=== PATIENT | male | born 1935 | race Caucasian/White ===

== ENCOUNTER 2018-09-30 19:25 | Inpatient (IN) ==
[2018-09-30] MEDS: Sod Chloride 0.9% Inj 1,000 ML IV.CONT SCH (21:03)
--- NOTE | 2018-09-30 21:16 | XR ---
EXAM DATE: 09/30/2018 9:11 PM EST AGE/SEX: 83 years / Male INDICATIONS: Shortness of breath and all over body pain. CLINICAL DATA: This is the patient's initial encounter. Patient reports that signs and symptoms have been present for 1 week and indicates a pain score of 10/10. MEDICAL/SURGICAL HISTORY: Myocardial infarction. Gastroesophageal reflux disease. Congestive heart failure. Bladder cancer. Renal failure. CABG. Pacemaker. COMPARISON: [facility], CT CHEST W/ CONTRAST, 12/20/2015. . FINDINGS: 2 AP views of the chest. Median sternotomy wires. AICD in place. Mildly prominent cardiac silhouette. Lungs are clear. No evidence of pleural effusion or pneumothorax. CONCLUSION: 1. Mildly prominent cardiac silhouette unchanged 2015. 2. No acute cardiopulmonary disease identified. Electronically signed by: Joseph Garduno MD Board Certified Radiologist 09/30/2018 9:15 PM EST
--- NOTE | 2018-09-30 21:32 | ED ---
HPI General Chief complaint: Medical Clearance Stated complaint: Medical Time Seen by Provider: 09/30/18 20:25 Source: patient and family Mode of arrival: wheelchair Limitations: physical limitation History of Present Illness HPI narrative: 82-year-old male complains of low back pain, constipation, generalized malaise and weakness and left leg weakness. Patient has history of prostate cancer. Patient originally was diagnosed with prostate cancer in 2002. Patient declined surgery at that time. Patient eventually was put on hormone blocking shot. Patient was subsequently put on medication. In December [address] scan of the chest for workup of chronic cough and finding consistent with multiple subcentimeter pulmonary nodules. Patient eventually had a bone scan and repeat a CT scan 2017 which were normal. Patient received radiation treatment for his prostate cancer in 2018 at [facility]. Patient reported his PSA rise from February 2018 from 2 to August 2018 at 102 and recently 114. Patient was referred to Dr. Clemente for evaluation. Patient complained the whole body pain including increasing low back pain and left leg weakness for the past week. Patient states that he has trouble walking with the left leg weakness. Patient also complained mild aching headache, persistent nausea and constipation. Patient had increasing upper and low back pain for the past week. Patient has urinary incontinence for the past year. Patient denies any fever chills. Patient was seen by Dr. Clemente again today and referred to ED for admission for further evaluation and treatment. Patient had a cardiac pacer in place. Unable to do MRI. Onset (ago): week(s) Location: back and lower extremity Radiation: non-radiation Severity: severe Quality: sharp Pain Consistency: constant Relieving factors: none Exacerbating factors: none Associated symptoms: Reports weakness Treatments prior to arrival: Reports none Related Data Home Medications Medication Instructions Recorded Confirmed alprazolam [Xanax] 0.25 mg PO BID PRN 09/30/18 09/30/18 aspirin [Aspir-81] 81 mg PO DAILY 09/30/18 09/30/18 biotin 5,000 mcg SUBLINGUAL DAILY 09/30/18 09/30/18 bisoprolol fumarate 5 mg PO DAILY 09/30/18 09/30/18 calcium carbonate [Calcium 500] 250 mg PO QID 09/30/18 09/30/18 furosemide [Lasix] 40 mg PO DAILY 09/30/18 09/30/18 hydrocodone-acetaminophen 1 tab PO Q4H 09/30/18 09/30/18 magnesium sulfate 100 mg PO DAILY 09/30/18 09/30/18 omeprazole 40 mg PO DAILY 09/30/18 09/30/18 rivaroxaban [Xarelto] 20 mg PO DAILY 09/30/18 09/30/18 simethicone 80 mg PO DAILY 09/30/18 09/30/18 spironolactone 25 mg PO DAILY 09/30/18 09/30/18 Allergies Allergy/AdvReac Type Severity Reaction Status Date / Time atorvastatin Allergy Severe Swelling Verified 09/30/18 20:12 statins Allergy Severe Swelling Uncoded 07/02/08 11:40 Review of Systems ROS: all other systems reviewed are negative FOR[facility]LY [facility] Medical History Medical History Bladder cancer (Acute) CHF (congestive heart failure) (Acute) GERD (gastroesophageal reflux disease) (Acute) Myocardial infarction acute (Acute) Renal failure (Acute) Social History Social History Substance History: No History of Abuse Second Hand Smoke Exposure: No Smoking Status: Never smoker How Often Do You Have a Drink Containing Alcohol: Never Recent Travel in [facility] within the Last 8 Weeks: No Recent Out of Country Travel within the Last 8 Weeks: No Immunization History Tetanus Immunization: Unsure Exam Narrative Exam Narrative: GENERAL: Thin and pale patient, lying in bed, no acute distress. SKIN: Focused skin assessment warm/dry. HEAD: Normocephalic. EYES: No scleral icterus. No injection or drainage. NECK: Supple, trachea midline. No JVD or lymphadenopathy. CARDIOVASCULAR: Regular rate and rhythm without murmurs, gallops, or rubs. RESPIRATORY: Breath sounds equal bilaterally. No accessory muscle use. GASTROINTESTINAL: Abdomen soft, non-tender, nondistended. MUSCULOSKELETAL: No cyanosis, or edema. BACK: Moderate tenderness in palpation lumbar area, without obvious deformity. No CVA tenderness. Neurologic exam: Patient has weakness of the left leg. Mild decrease in light touch sensation in left leg. Course Initial Documented Vital Signs Temperature 98.9 F 09/30/18 20:18 Pulse Rate 80 09/30/18 20:18 Respiratory Rate 20 09/30/18 20:18 Blood Pressure 119/58 L 09/30/18 20:18 Pulse Oximetry 95 09/30/18 20:18 Last Documented Vital Signs Temperature 98.9 F 09/30/18 20:18 Pulse Rate 80 09/30/18 20:18 Respiratory Rate 20 09/30/18 20:18 Blood Pressure 119/58 L 09/30/18 20:18 Pulse Oximetry 95 09/30/18 20:18 Medical Decision Making MDM Narrative Medical decision making narrative: 83-year-old male with history of prostate cancer now complains of back pain, weakness to left leg constipation and urinary incontinence. Normal saline solution 1 L IV bolus. Normal saline solution 125 cc an hour. Percocet 5 1 tablet p.o. now. Decadron 4 mg p.o. now. I spoke with Dr. Clemente who will be consulted for the case. Patient has cardiac pacer in place. Unable to do MRI. Medical Screen Exam Complete: Yes Emergency Medical Condition: Yes Differential Diagnosis Differential Diagnosis: Differential diagnosis including spinal cord compression , neuropathy, fracture. Lab Data Lab results reviewed: Yes I reviewed the patient's lab results. Result diagrams: 09/30/18 20:57 09/30/18 20:57 Lab Results 09/30/18 09/30/18 09/30/18 Range/Units 20:57 20:57 20:57 WBC 9.5 (4.0-11.0) th/mm3 RBC 4.24 L (4.50-5.90) mil/mm3 Hgb 12.6 L (13.0-17.0) gm/dL Hct 36.9 L (39.0-51.0) % MCV 87.0 (80.0-100.0) fL MCH 29.6 (27.0-34.0) pg MCHC 34.1 (32.0-36.0) % RDW 14.1 (11.6-17.2) % Plt Count 282 (150-450) th/mm3 MPV 10.0 (7.0-11.0) fL Neut % (Auto) 80.5 H (16.0-70.0) % Lymph % (Auto) 9.5 (9.0-44.0) % Marshall % (Auto) 9.2 H (0.0-8.0) % Eos % (Auto) 0.2 (0.0-4.0) % Baso % (Auto) 0.6 (0.0-2.0) % Neut # (Auto) 7.7 (1.8-7.7) th/mm3 Lymph # (Auto) 0.9 L (1.0-4.8) th/mm3 Marshall # (Auto) 0.9 (0.0-0.9) th/mm3 Eos # (Auto) 0.0 (0.0-0.4) th/mm3 Baso # (Auto) 0.1 (0.0-0.2) th/mm3 WBC Differential . Differential Comment Auto diff final PT 12.2 H (9.8-11.6) sec INR 1.2 Ratio APTT 31.8 H (23.4-31.7) sec Sodium (136-145) meq/L Potassium (3.5-5.1) meq/L Chloride (98-107) meq/L Carbon Dioxide (21.0-32.0) meq/L Anion Gap (5-15) meq/L BUN (7-18) mg/dL Creatinine (0.60-1.30) mg/dL Estimated GFR (>89) mL/min Random Glucose (74-106) mg/dL Calcium (8.5-10.1) mg/dL Magnesium (1.5-2.5) mg/dL Total Bilirubin (0.2-1.0) mg/dL AST (15-37) U/L ALT (12-78) U/L Alkaline Phosphatase (45-117) U/L Total Creatine Kinase (39-308) U/L CK-MB (CK-2) (0.5-3.6) ng/mL CK-MB (CK-2) % (0.0-4.0) % Total Protein (6.4-8.2) g/dL Albumin (3.4-5.0) g/dL TSH 1.150 (0.358-3.740) uIU/mL 09/30/18 Range/Units 20:57 WBC (4.0-11.0) th/mm3 RBC (4.50-5.90) mil/mm3 Hgb (13.0-17.0) gm/dL Hct (39.0-51.0) % MCV (80.0-100.0) fL MCH (27.0-34.0) pg MCHC (32.0-36.0) % RDW (11.6-17.2) % Plt Count (150-450) th/mm3 MPV (7.0-11.0) fL Neut % (Auto) (16.0-70.0) % Lymph % (Auto) (9.0-44.0) % Marshall % (Auto) (0.0-8.0) % Eos % (Auto) (0.0-4.0) % Baso % (Auto) (0.0-2.0) % Neut # (Auto) (1.8-7.7) th/mm3 Lymph # (Auto) (1.0-4.8) th/mm3 Marshall # (Auto) (0.0-0.9) th/mm3 Eos # (Auto) (0.0-0.4) th/mm3 Baso # (Auto) (0.0-0.2) th/mm3 WBC Differential Differential Comment PT (9.8-11.6) sec INR Ratio APTT (23.4-31.7) sec Sodium 125 L (136-145) meq/L Potassium 4.3 (3.5-5.1) meq/L Chloride 90 L (98-107) meq/L Carbon Dioxide 23.6 (21.0-32.0) meq/L Anion Gap 11 (5-15) meq/L BUN 16 (7-18) mg/dL Creatinine 1.00 (0.60-1.30) mg/dL Estimated GFR 71 L (>89) mL/min Random Glucose 102 (74-106) mg/dL Calcium 10.0 (8.5-10.1) mg/dL Magnesium 2.2 (1.5-2.5) mg/dL Total Bilirubin 0.8 (0.2-1.0) mg/dL AST 109 H (15-37) U/L ALT 25 (12-78) U/L Alkaline Phosphatase 548 H (45-117) U/L Total Creatine Kinase 384 H (39-308) U/L CK-MB (CK-2) Less than 1.0 (0.5-3.6) ng/mL CK-MB (CK-2) % 0.3 (0.0-4.0) % Total Protein 8.8 H (6.4-8.2) g/dL Albumin 3.4 (3.4-5.0) g/dL TSH (0.358-3.740) uIU/mL Imaging Data Attestation: I personally reviewed and interpreted this imaging study as follows : Radiologist's impression: Cervical Spine CT 09/30/18 20:41 CONCLUSION: 1. Degenerative changes are noted as above without evidence for acute fracture or listhesis. Chest X-Ray 09/30/18 20:41 CONCLUSION: 1. Mildly prominent cardiac silhouette unchanged 2016. 2. No acute cardiopulmonary disease identified. Head CT 09/30/18 20:41 CONCLUSION: 1. Atrophy and white matter disease. . Lumbar Spine CT 09/30/18 20:46 There is atherosclerotic calcification of the aorta and iliac vessels noted. There is severe disc space narrowing at L4-5 and L5-S1 with vacuum disc phenomenon, endplate sclerosis and osteophytosis. There is concavity at the superior endplate of L4 felt to represent an acute superior endplate compression fracture with a thin band of sclerosis along the anterior one half consistent with a chronic component. There is mild loss of vertebral body height. Prominent Schmorl node inferior endplate of L2 identified. There is also a Schmorl node with mild wedging of L1 which is nonacute in appearance. Vacuum disc phenomenon and moderate disc space narrowing at L1-2 noted. Patchy sclerosis is seen at T11 and T12 as well as the left iliac bone suspicious for metastatic disease. At L3-4 there is moderate to severe canal stenosis secondary to slight retropulsion of the posterior superior aspect of L4 and a diffuse disc bulge. CONCLUSION: 1. Degenerative changes as well as an acute on chronic superior endplate fracture at L4 with slight retropulsion and canal stenosis. 2. Remote L1 compression deformity. 3. Patchy sclerotic foci are noted as above and characteristic of metastatic disease. Thoracic Spine CT 09/30/18 20:46 Examination demonstrates slight nonacute wedging of T6, scattered sclerotic lesions within the spine characteristic of the patient's known metastatic disease to bone. There is a linear lucency seen along the posterior one third superior endplate of T10 with slight superior endplate concavity characteristic of an acute fracture. There is a Schmorl node at the superior endplate of T11 as well as the inferior endplate of T11. There is concavity along the superior endplate of L1 which is nonacute in appearance. There is no evidence for spinal stenosis. CONCLUSION: 1. Degenerative changes as well as a T10 superior endplate fracture with slight loss of vertebral body height at the superior endplate. 2. Metastatic disease to bone. Discharge Plan Discharge Disposition Patient Disposition: ED Admit(ED Internal Use Only) Discharge Order Discharge Orders: ED Use Only Admit Order (Routine); Ordered 09/30/18 Ordered By: Gregory Darby Discharge Details Diagnosis: Prostate cancer metastatic to bone, Intractable back pain, Myelopathy Physicians Team ED Provider: Gregory Darby Primary Care Provider: John Vargas Rxs /Orders / Referrals /Forms Prescriptions: No Action furosemide [Lasix] 40 mg Tablet 40 mg PO DAILY RF: 0 hydrocodone-acetaminophen 5-325 mg Tablet 1 tab PO Q4H RF: 0 omeprazole 40 mg Capsule,Delayed Release(Dr/Ec) 40 mg PO DAILY RF: 0 aspirin [Aspir-81] 81 mg Tablet,Delayed Release (Dr/Ec) 81 mg PO DAILY RF: 0 spironolactone 25 mg Tablet 25 mg PO DAILY RF: 0 bisoprolol fumarate 5 mg Tablet 5 mg PO DAILY RF: 0 alprazolam [Xanax] 0.25 mg Tablet 0.25 mg PO BID PRN (Reason: Anxiety) RF: 0 calcium carbonate [Calcium 500] 500 mg calcium (1,250 mg) Tablet 250 mg PO QID RF: 0 simethicone 80 mg Tablet,Chewable 80 mg PO DAILY RF: 0 rivaroxaban [Xarelto] 20 mg Tablet 20 mg PO DAILY RF: 0 magnesium sulfate 100 mg Capsule 100 mg PO DAILY RF: 0 biotin 5,000 mcg Tablet, Sublingual 5,000 mcg SUBLINGUAL DAILY RF: 0 Status ED Status: Admitted Patient
[2018-09-30 21:35] LABS: Baso # (Auto) 0.1 th/mm3 (0.0-0.2); Baso % (Auto) 0.6 % (0.0-2.0); Eos % (Auto) 0.2 % (0.0-4.0); Hematocrit 36.9 % (39.0-51.0); Hemoglobin 12.6 gm/dL (13.0-17.0); Lymph # (Auto) 0.9 th/mm3 (1.0-4.8); Lymph % (Auto) 9.5 % (9.0-44.0); Mean Corpuscular HGB Conc 34.1 % (32.0-36.0); Mean Corpuscular Hemoglobin 29.6 pg (27.0-34.0); Mono # (Auto) 0.9 th/mm3 (0.0-0.9); Mono % (Auto) 9.2 % (0.0-8.0); Neut # (Auto) 7.7 th/mm3 (1.8-7.7); Neut % (Auto) 80.5 % (16.0-70.0); Platelet Count 282 th/mm3 (150-450); Red Blood Count 4.24 mil/mm3 (4.50-5.90); Red Cell Distribution Width 14.1 % (11.6-17.2); White Blood Count 9.5 th/mm3 (4.0-11.0)
[2018-09-30 21:41] LABS: Alanine Aminotransferase 25 U/L (12-78)
[2018-09-30 21:44] LABS: Activated Partial Thrombo Time 31.8 sec (23.4-31.7); Albumin 3.4 g/dL (3.4-5.0); Alkaline Phosphatase 548 U/L (45-117); Anion Gap 11 meq/L (5-15); Aspartate Aminotransferase 109 U/L (15-37); Blood Urea Nitrogen 16 mg/dL (7-18); Carbon Dioxide 23.6 meq/L (21.0-32.0); Chloride 90 meq/L (98-107); Creatine Kinase 384 U/L (39-308); Glomerular Filtration Rate 71 mL/min (>89); Glucose,Random 102 mg/dL (74-106); INR 1.2 Ratio; Magnesium 2.2 mg/dL (1.5-2.5); Prothrombin Time 12.2 sec (9.8-11.6); Sodium 125 meq/L (136-145); Total Protein 8.8 g/dL (6.4-8.2)
[2018-09-30 21:48] LABS: Potassium 4.3 meq/L (3.5-5.1)
[2018-09-30 22:06] LABS: CKMB Percent 0.3 % (0.0-4.0)
--- NOTE | 2018-09-30 22:11 | CT ---
EXAM DATE: 09/30/2018 10:06 PM EST AGE/SEX: 83 years / Male INDICATIONS: Neck and back pain. Evaluate for spinal cord compression. CLINICAL DATA: This is the patient's initial encounter. Patient reports that signs and symptoms have been present for 1 day and indicates a pain score of 10/10. MEDICAL/SURGICAL HISTORY: Carcinoma, bone. Carcinoma, bladder. Renal failure. None. RADIATION DOSE: 56.35 CTDI (mGy) COMPARISON: No prior exams available for comparison. TECHNIQUE: CT of the head without contrast. Using automated exposure control and adjustment of the mA and/or kV according to patient size, radiation dose was kept as low as reasonably achievable to ob tain optimal diagnostic quality images. DICOM format image data is available electronically for revi ew and comparison. FINDINGS: There is diffuse atrophy and patchy hypodensity in the bilateral centrum semiovale and periventricula r white matter characteristic of chronic microvascular ischemic disease. Left occipital encephalomala jamal from remote infarct. There are no fractures. No signs of acute infarct, hemorrhage or mass is CONCLUSION: 1. Atrophy and white matter disease. . Electronically signed by: Christopher Tobin MD Board Certified Radiologist 09/30/2018 10:10 PM EST
--- NOTE | 2018-09-30 22:16 | CT ---
EXAM DATE: 09/30/2018 10:11 PM EST AGE/SEX: 83 years / Male INDICATIONS: Neck and back pain. Evaluate for spinal cord compression. CLINICAL DATA: This is the patient's initial encounter. Patient reports that signs and symptoms have been present for 1 day and indicates a pain score of 10/10. MEDICAL/SURGICAL HISTORY: Carcinoma, bone. Carcinoma, bladder. Myocardial infarction. Renal failure. None. RADIATION DOSE: 16.18 CTDI (mGy) [place] [facility] [place]AST, 09/30/2018. . TECHNIQUE: Contiguous axial images were obtained using helical multirow detector technique. The vol umetric data was post-processed with multiplanar reconstruction in oblique axial, sagittal, and coron al planes. Using automated exposure control and adjustment of the mA and/or kV according to patient s ize, radiation dose was kept as low as reasonably achievable to obtain optimal diagnostic quality [place] ges. DICOM format image data is available electronically for review and comparison. FINDINGS: Alignment is normal. No prevertebral soft tissue swelling or compression deformity. Moderate to sever e disc space narrowing at C5-6 with osteophytosis and moderate uncovertebral hypertrophy at this leve l. The odontoid process is intact. Moderate multilevel facet hypertrophic changes are seen. Cervicoth oracic junction is approximated. Moderate to severe left foraminal stenosis at C4-5 secondary to face t and uncovertebral hypertrophy. Severe bilateral foraminal narrowing at C5-6 with mild canal stenosi s at this level. CONCLUSION: 1. Degenerative changes are noted as above without evidence for acute fracture or listhesis. Electronically signed by: Christopher Tobin MD Board Certified Radiologist 09/30/2018 10:15 PM EST
--- NOTE | 2018-09-30 22:28 | CT ---
EXAM DATE: 09/30/2018 10:20 PM EST AGE/SEX: 83 years / Male INDICATIONS: Neck and back pain. Evaluate for spinal cord compression. CLINICAL DATA: This is the patient's initial encounter. Patient reports that signs and symptoms have been present for 1 day and indicates a pain score of 10/10. MEDICAL/SURGICAL HISTORY: Carcinoma, bone. Carcinoma, bladder. Myocardial infarction. Renal fail ure. None. RADIATION DOSE: 17.08 CTDI (mGy) ; Combined studies COMPARISON: C, CT CERVICAL SPINE W/O CONTRAST, 09/30/2018. . TECHNIQUE: Contiguous axial images were acquired with a multirow detector CT scanner without contras t. Multiplanar reconstructions in the sagittal and coronal plane were also performed. Using automate d exposure control and adjustment of the mA and/or kV according to patient size, radiation dose was k ept as low as reasonably achievable to obtain optimal diagnostic quality images. DICOM format image data is available electronically for review and comparison. FINDINGS: There is atherosclerotic calcification of the aorta and iliac vessels noted. There is severe disc spa ce narrowing at L4-5 and L5-S1 with vacuum disc phenomenon, endplate sclerosis and osteophytosis. The re is concavity at the superior endplate of L4 felt to represent an acute superior endplate compressi on fracture with a thin band of sclerosis along the anterior one half consistent with a chronic compo nent. There is mild loss of vertebral body height. Prominent Schmorl node inferior endplate of L2 yuni ntified. There is also a Schmorl node with mild wedging of L1 which is nonacute in appearance. Vacuum disc phenomenon and moderate disc space narrowing at L1-2 noted. Patchy sclerosis is seen at T11 and T12 as well as the left iliac bone suspicious for metastatic disease. At L3-4 there is moderate to s evere canal stenosis secondary to slight retropulsion of the posterior superior aspect of L4 and a di ffuse disc bulge. CONCLUSION: 1. Degenerative changes as well as an acute on chronic superior endplate fracture at L4 with slight retropulsion and canal stenosis. 2. Remote L1 compression deformity. 3. Patchy sclerotic foci are noted as above and characteristic of metastatic disease. Electronically signed by: Christopher Tobin MD Board Certified Radiologist 09/30/2018 10:26 PM EST
--- NOTE | 2018-09-30 22:37 | CT ---
EXAM DATE: 09/30/2018 10:22 PM EST AGE/SEX: 83 years / Male INDICATIONS: Neck and back pain. Evaluate for spinal cord compression. CLINICAL DATA: This is the patient's initial encounter. Patient reports that signs and symptoms have been present for 1 day and indicates a pain score of 10/10. MEDICAL/SURGICAL HISTORY: Carcinoma, bone. Carcinoma, bladder. Myocardial infarction. Renal fail ure. None. RADIATION DOSE: 17.08 CTDI (mGy) COMPARISON: No prior exams available for comparison. TECHNIQUE: Contiguous axial images were acquired using a multirow detector CT scanner without contra st. Multiplanar reconstruction in the sagittal and coronal planes was performed. Using automated exp osure control and adjustment of the mA and/or kV according to patient size, radiation dose was kept a s low as reasonably achievable to obtain optimal diagnostic quality images. DICOM format image data is available electronically for review and comparison. FINDINGS: Examination demonstrates slight nonacute wedging of T6, scattered sclerotic lesions within the spine characteristic of the patient's known metastatic disease to bone. There is a linear lucency seen gurjit g the posterior one third superior endplate of T10 with slight superior endplate concavity characteri stic of an acute fracture. There is a Schmorl node at the superior endplate of T11 as well as the inf erior endplate of T11. There is concavity along the superior endplate of L1 which is nonacute in appe arance. There is no evidence for spinal stenosis. CONCLUSION: 1. Degenerative changes as well as a T10 superior endplate fracture with slight loss of vertebral aleta dy height at the superior endplate. 2. Metastatic disease to bone. Electronically signed by: Christopher Tobin MD Board Certified Radiologist 09/30/2018 10:35 PM EST
[2018-09-30] MEDS ORDERED: Sod Chloride 0.9% Inj 1,000 ML IV.SIG SCH (23:30)
[2018-10-01] MEDS ORDERED: Bisacodyl 10 MG Supp RECTAL PRN (00:05)
[2018-10-01] MEDS ORDERED: Acetaminophen 325 MG Tablet PO PRN (00:05)
--- NOTE | 2018-10-01 00:20 | P.HP ---
History of Present Illness Service: [facility] Primary Care Physician: John Vargas MD History of Present Illness: 82-year-old male with a past medical history significant for metastatic prostate cancer, coronary artery disease status post CABG with pacemaker/ defibrillator, congestive heart failure, history of CVA and atrial fibrillation anticoagulated on Xarelto presents to the emergency department at the recommendation of his oncologist, Dr. Clemente, for the evaluation of left lower extremity weakness and lower back pain. The patient reports he has had lower back pain and left lower extremity weakness that has been progressively worsening since July. He reports that the pain is intractable and markedly worse with any movement. Patient currently complains of a mild aching headache with persistent nausea and constipation. He denies any chest pain or shortness of breath. No fevers/chills. Inpatient Certification: I certify that the inpatient services were ordered in accordance with Medicare regulations governing the order. This includes certification that hospital inpatient services are reasonable and necessary and in the case of services not specified as inpatient-only under 42 CFR 419.22(n), that they are appropriately provided as inpatient services in accordance to with the 2-midnight benchmark under 43 CFR 412.3(e) Review of Systems All other systems reviewed negative except as stated in HPI PMFSH - History History Provided By: Patient - Medical History Medical History: Medical History (Last Updated 10/01/18 @ 00:12 by Ericka Alex MD) Atrial fibrillation CHF (congestive heart failure) Coronary artery disease GERD (gastroesophageal reflux disease) History of CVA (cerebrovascular accident) Prostate cancer metastatic to bone - Surgical History Surgical History: Surgical History (Last Updated 10/01/18 @ 00:13 by Ericka Alex MD) History of four vessel coronary artery bypass graft History of permanent cardiac pacemaker placement Status post appendectomy Status post hemorrhoidectomy Status post hernia repair - Family History Family History: Family History (Last Updated 10/01/18 @ 00:13 by Ericka Alex MD) Other Coronary artery disease - Tobacco History Second Hand Smoke Exposure: No Smoking Status: Never smoker - Alcohol History How Often Do You Have a Drink Containing Alcohol: Never - Substance Use History Substance History: No History of Abuse - Travel History Recent Travel in the [place] Within the Last 8 Weeks: No Recent Travel Out of the Country Within the Last 8 Weeks: No - Immunization History Tetanus Immunization: Unsure Medications and Allergies Active Medications: Active Medications Sodium Chloride (Ns Inj) 1,000 mls @ 125 mls/hr IV.CONT .Q8H CHEAL Last Admin: 09/30/18 21:03 Dose: 125 mls/hr Sodium Chloride (Ns Inj) 1,000 mls @ 1,000 mls/hr IV.SIG BOLUS CHELA Stop: 10/01/18 00:29 Last Admin: 09/30/18 23:52 Dose: 1,000 mls/hr Allergies Allergy/AdvReac Type Severity Reaction Status Date / Time atorvastatin Allergy Severe Swelling Verified 09/30/18 20:12 statins Allergy Severe Swelling Uncoded 07/02/08 11:40 Home Medications Medication Instructions Recorded Confirmed Type alprazolam [Xanax] 0.25 mg PO BID PRN 09/30/18 09/30/18 History aspirin [Aspir-81] 81 mg PO DAILY 09/30/18 09/30/18 History biotin 5,000 mcg SUBLINGUAL DAILY 09/30/18 09/30/18 History bisoprolol fumarate 5 mg PO DAILY 09/30/18 09/30/18 History calcium carbonate [Calcium 500] 250 mg PO QID 09/30/18 09/30/18 History furosemide [Lasix] 40 mg PO DAILY 09/30/18 09/30/18 History hydrocodone-acetaminophen 1 tab PO Q4H 09/30/18 09/30/18 History magnesium sulfate 100 mg PO DAILY 09/30/18 09/30/18 History omeprazole 40 mg PO DAILY 09/30/18 09/30/18 History rivaroxaban [Xarelto] 20 mg PO DAILY 09/30/18 09/30/18 History simethicone 80 mg PO DAILY 09/30/18 09/30/18 History spironolactone 25 mg PO DAILY 09/30/18 09/30/18 History Exam Vital signs: Vital Signs 09/30/18 20:18 Temperature 98.9 F Pulse Rate 80 Respiratory Rate 20 Blood Pressure 119/58 L Pulse Oximetry 95 Intake & Output 09/30/18 09/30/18 10/01/18 06:59 18:59 06:59 Weight 79.379 kg Narrative: Gen.: No acute distress Head: Normocephalic. Atraumatic. EENT: Pupils equal round and reactive to light. Nose without drainage. Airway intact. Throat without injection. Cardiovascular: Regular rate and rhythm. No murmurs, rubs or gallops. Respiratory: Lungs clear to auscultation bilaterally. No wheezes or rhonchi. Abdomen: Soft, nontender, nondistended. No peritoneal signs. Musculoskeletal: No gross deformities. No edema. Patient's movement significantly limited by lower back pain. Skin: No obvious rashes or erythema. Neuro: Cranial nerves II through XII grossly intact. Foot flexion/extension 5/ 5. Unable to raise left lower extremity off the bed secondary to weakness and lower back pain. Results - Labs CBC & Chem 7: 09/30/18 20:57 09/30/18 20:57 Labs: Laboratory Results - last 24 hr 09/30/18 09/30/18 09/30/18 20:57 20:57 20:57 WBC 9.5 RBC 4.24 L Hgb 12.6 L Hct 36.9 L MCV 87.0 MCH 29.6 MCHC 34.1 RDW 14.1 Plt Count 282 MPV 10.0 Neut % (Auto) 80.5 H Lymph % (Auto) 9.5 [place] % (Auto) 9.2 H Eos % (Auto) 0.2 Baso % (Auto) 0.6 Neut # (Auto) 7.7 Lymph # (Auto) 0.9 L [place] # (Auto) 0.9 Eos # (Auto) 0.0 Baso # (Auto) 0.1 WBC Differential . Differential Comment Auto diff final PT 12.2 H INR 1.2 APTT 31.8 H Sodium Potassium Chloride Carbon Dioxide Anion Gap BUN Creatinine Estimated GFR Random Glucose Calcium Magnesium Total Bilirubin AST ALT Alkaline Phosphatase Total Creatine Kinase CK-MB (CK-2) CK-MB (CK-2) % Total Protein Albumin TSH 1.150 09/30/18 20:57 WBC RBC Hgb Hct MCV MCH MCHC RDW Plt Count MPV Neut % (Auto) Lymph % (Auto) [place] % (Auto) Eos % (Auto) Baso % (Auto) Neut # (Auto) Lymph # (Auto) [place] # (Auto) Eos # (Auto) Baso # (Auto) WBC Differential Differential Comment PT INR APTT Sodium 125 L Potassium 4.3 Chloride 90 L Carbon Dioxide 23.6 Anion Gap 11 BUN 16 Creatinine 1.00 Estimated GFR 71 L Random Glucose 102 Calcium 10.0 Magnesium 2.2 Total Bilirubin 0.8 AST 109 H ALT 25 Alkaline Phosphatase 548 H Total Creatine Kinase 384 H CK-MB (CK-2) Less than 1.0 CK-MB (CK-2) % 0.3 Total Protein 8.8 H Albumin 3.4 TSH - Imaging Impressions Cervical Spine CT 09/30/18 20:41 CONCLUSION: 1. Degenerative changes are noted as above without evidence for acute fracture or listhesis. Chest X-Ray 09/30/18 20:41 CONCLUSION: 1. Mildly prominent cardiac silhouette unchanged 2015. 2. No acute cardiopulmonary disease identified. Head CT 09/30/18 20:41 CONCLUSION: 1. Atrophy and white matter disease. . Lumbar Spine CT 09/30/18 20:46 There is atherosclerotic calcification of the aorta and iliac vessels noted. There is severe disc space narrowing at L4-5 and L5-S1 with vacuum disc phenomenon, endplate sclerosis and osteophytosis. There is concavity at the superior endplate of L4 felt to represent an acute superior endplate compression fracture with a thin band of sclerosis along the anterior one half consistent with a chronic component. There is mild loss of vertebral body height. Prominent Schmorl node inferior endplate of L2 identified. There is also a Schmorl node with mild wedging of L1 which is nonacute in appearance. Vacuum disc phenomenon and moderate disc space narrowing at L1-2 noted. Patchy sclerosis is seen at T11 and T12 as well as the left iliac bone suspicious for metastatic disease. At L3-4 there is moderate to severe canal stenosis secondary to slight retropulsion of the posterior superior aspect of L4 and a diffuse disc bulge. CONCLUSION: 1. Degenerative changes as well as an acute on chronic superior endplate fracture at L4 with slight retropulsion and canal stenosis. 2. Remote L1 compression deformity. 3. Patchy sclerotic foci are noted as above and characteristic of metastatic disease. Thoracic Spine CT 09/30/18 20:46 Examination demonstrates slight nonacute wedging of T6, scattered sclerotic lesions within the spine characteristic of the patient's known metastatic disease to bone. There is a linear lucency seen along the posterior one third superior endplate of T10 with slight superior endplate concavity characteristic of an acute fracture. There is a Schmorl node at the superior endplate of T11 as well as the inferior endplate of T11. There is concavity along the superior endplate of L1 which is nonacute in appearance. There is no evidence for spinal stenosis. CONCLUSION: 1. Degenerative changes as well as a T10 superior endplate fracture with slight loss of vertebral body height at the superior endplate. 2. Metastatic disease to bone. Caprini VTE Risk Assessment Caprini VTE Risk Assessment: Moderate/High Risk (score >= 2) Caprini Risk Assessment Model: Point Value = 1 Point Value = 2 Point Value = 3 Point Value = 5 Age 41-60 Minor surgery BMI > 25 kg/m2 Swollen legs Varicose veins or History of unexplained or recurrent spontaneous Oral contraceptives or hormone replacement Sepsis (< 1 month) Serious lung disease, including pneumonia (< 1 month) Abnormal pulmonary function Acute myocardial infarction Congestive heart failure (< 1 month) History of inflammatory bowel disease Medical patient at bed rest Age 61-74 Arthroscopic surgery Major open surgery (> 45 min) Laparoscopic surgery (> 45 min) Malignancy Confined to bed (> 72 hours) Immobilizing plaster cast Central venous access Age >= 75 History of VTE Family history of VTE Factor V Leiden Prothrombin [id number] Lupus anticoagulant Anticardiolipin antibodies Elevated serum homocysteine Heparin-induced thrombocytopenia Other congenital or acquired thrombophilia Stroke (< 1 month) Elective arthroplasty Hip, pelvis, or leg fracture Acute spinal cord injury (< 1 month) Prophylaxis Regimen: Total Risk Factor Score Risk Level Prophylaxis Regimen 0-1 Low Early ambulation 2 Moderate Order ONE of the following: *Sequential Compression Device (SCD) *Heparin 5000 units SQ BID 3-4 Higher Order ONE of the following medications: *Heparin 5000 units SQ TID *Enoxaparin/Lovenox 40 mg SQ daily (WT < 150 kg, CrCl > 30 mL/min) *Enoxaparin/Lovenox 30 mg SQ daily (WT < 150 kg, CrCl > 10-29 mL/min) *Enoxaparin/Lovenox 30 mg SQ BID (WT < 150 kg, CrCl > 30 mL/min) AND/OR *Sequential Compression Device (SCD) 5 or more Highest Order ONE of the following medications: *Heparin 5000 units SQ TID (Preferred with Epidurals) *Enoxaparin/Lovenox 40 mg SQ daily (WT < 150 kg, CrCl > 30 mL/min) *Enoxaparin/Lovenox 30 mg SQ daily (WT < 150 kg, CrCl > 10-29 mL/min) *Enoxaparin/Lovenox 30 mg SQ BID (WT < 150 kg, CrCl > 30 mL/min) AND *Sequential Compression Device (SCD) Assessment and Plan - Plan Assessment/plan: 1. Left lower extremity weakness/lower back pain Concern for metastatic disease to the spine causing cord compression CT of the thoracic spine concerning for T10 acute fracture with multiple areas of metastatic disease to the bone CT of the lumbar spine significant for fracture of L4 with slight retropulsion and canal stenosis as well as remote L1 compression deformity and metastatic disease Decadron Neurosurgery consulted, appreciate assistance Percocet for pain 2. Metastatic prostate cancer Patient's oncologist, Dr. Clemente consulted, appreciate assistance 3. Congestive heart failure Continue home Lasix, Spironolactone, Bystolic Caution with IV fluids 4. Coronary artery disease/atrial fibrillation Continue home medications including anticoagulation with Xarelto FEN Heart healthy diet Electrolytes: Monitor and replete as needed Xarelto
[2018-10-01 01:09] LABS: Bilirubin,Urine Negative (Negative); Clarity,Urine Clear (Clear); Color,Urine Yellow (Yellw/Straw); Glucose,Urine (UA) Negative (Negative); Leukocyte Esterase,Urine Negative (Negative); Mucus,Urine Few /lpf (Occasional); Nitrite,Urine Negative (Negative); Specific Gravity,Urine 1.009 (1.002-1.035); Squamous Epithelial Cell,Urine <1 /hpf (0-5)
[2018-10-01] MEDS: Sod Chloride 0.9% Inj 1,000 ML IV.CONT SCH ×3 (05:25→22:17)
[2018-10-01] MEDS: Senna/Docusate Sodium 8.6/50 MG Tablet PO SCH ×2 (08:55→20:14)
[2018-10-01] MEDS: Furosemide 40 MG Tablet PO SCH (08:56)
[2018-10-01] MEDS: Rivaroxaban 20 MG Tablet PO SCH (08:56)
[2018-10-01] MEDS ORDERED: Spironolactone 25 MG Tablet PO SCH (09:00)
[2018-10-01] MEDS ORDERED: ZEBETA 5 MG PO SCH (09:00)
[2018-10-01] MEDS ORDERED: LEUPROLIDE ACETATE 7.5 MG IM ONE (10:00)
--- NOTE | 2018-10-01 11:16 | P.DIET ---
Nutritional Evaluation Type of nutrition evaluation: initial (Weight loss screen) Nutrition consult regarding: Diet Evaluation Nutrition screening: Weight Loss > 10 lbs Objective - Diagnosis Metastatic prostate ca, intractable back pain, myelopathy - Objective Body Mass Index: 22 [place] body weight: 75 kg % IBW: 96 Body Weight Used for Calculations: Actual (71.8) Energy Needs - Lower Range (kCal/kg): 30 Energy Needs - Upper Range (kCal/kg): 35 Lower Limit kCal/kg (kCals): 2,154 Upper Limit kCal/kg (kCals): 2,513 Lower Limit Protein Factor (Grams per Kg): 1.2 Upper Limit Protein Factor (Grams per Kg): 1.5 Lower Protein Needs (Protein): 86 Upper Protein Needs (Protein): 107 Fluid Factor (ml/kg): 30 Estimated Fluid Needs (ml): 2,154 Dietitian Reviewed in Medical Record: Current diet, Curent medications, Intake & Output, Labs, Medical history Diet Order: Cardiac Objective Comments: PMH; metastatic prostate ca, CAD, CHF Labs; reviewed Medications; Lasix Assessment Assessment: 10/01/18 Weight loss screen; Pt receiving PT care when attempted to visit. Pt is at nutritional risk 2/2 dx of metastatic prostate ca and recent weight loss. Presented to ED for evaluation of left lower extremity weakness and lower back pain. Pt is currently ordered for Cardiac diet. Will monitor PO intake and assess need for supplement. Dietitian following. Recommendations: 1. Monitor PO intake
--- NOTE | 2018-10-01 13:15 | MB ---
cc: Kit Clemente MD DATE: 10/01/2018 REASON FOR CONSULTATION: 83-year-old male with rapidly progressive prostate cancer and concerns regarding possible spinal cord compression, requiring urgent evaluation and treatment. PATIENT PROFILE: The patient has been to the same woman for 58 years. He lives at home with his . He stopped smoking 35 years ago and had smoked 2 packs of cigarettes per day for 30 years. He was born in [place] and has lived in [place] since 1975. 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 He has no children. Alcohol intake is minimal. Until his current illness, he enjoyed outside activities including golf, motor cycling, and when well, skiing. HISTORY OF PRESENT ILLNESS: The patient is an 83-year-old male whose history dates back to 11/2002 when he had a biopsy of the prostate at the [facility]. He was found to have an adenocarcinoma involving multiple biopsy specimens in both lobes. It was a [employer] grade 6 tumor with perineural invasion. The surgeon at the [facility] recommended surgery. Radiation was discussed as well. The patient declined both treatments and elected to proceed with homeopathic medicines where he received a medication called Prostasol. This [id number] medication contains saw palmetto. This apparently worked and the PSA decreased and remained low for many years. He subsequently developed progressive disease and received intermittent Lupron, which was successful, but at some point was stopped due to side effects that he found unacceptable. He was also given Casodex and developed progressive disease. In late 2016, he had a PSA of 15. He received a single injection of Eligard and a month later the PSA had fallen to either 5 or 7. He was referred for radiation therapy and prior to treatment with radiation had a bone scan and a CT scan of the thorax, abdomen, and pelvis on 10/22/2017 showing no evidence of metastatic disease. On 01/21/2018, he completed radiation to the prostate and seminal vesicles with IMRT. On 02/28/2018, the PSA was 1.9. He did well for a number of months and then recently developed bone pain. On 09/02/2018, the PSA was 102. On 09/17/2018, the patient had a CT scan of the abdomen and pelvis showing multiple sclerotic abnormalities of the spine and pelvis compared with 10/22/2017, indicating progressive metastatic prostate cancer. In addition, he had several new small nonspecific lung nodules. He was seen in my office last evening after 6 p.m. He was acutely ill. He was in a wheelchair. He was unable to stand and get onto the examining table. He had severe bilateral leg weakness and could barely move the left leg. He had urinary incontinence, which was old and severe constipation for which he had to do self disimpaction. He had nausea. I was concerned that he had spinal cord compression and had him admitted to the hospital for urgent evaluation. He has a history of atrial fibrillation, congestive heart failure, and a previous [place]. He has a defibrillator and pacemaker and for this reason cannot undergo an MRI. I spoke with the emergency room last night and arranged for a CT of the thoracic and lumbar spine. These were done and show metastatic disease, but no compression of the spinal cord. He was given steroids. When I saw him this morning, he was enormously improved. He was able to lift the left leg without any problem, as well as the right leg where before he could barely move the left leg. His pain, which was excruciating, is significantly less. PAST SURGICAL HISTORY: 1. Appendectomy. 2. Colonoscopy approximately 13 years ago. 3. Coronary artery bypass surgery graft in 2012. 4. Hemorrhoidectomy. 5. Umbilical and hernia repair in the . 6. Prostate biopsy 11/30/2002 at [facility] showing [employer] grade 7 adenocarcinoma with perineural invasion. PAST MEDICAL HISTORY: 1. Anxiety. 2. Atrial fibrillation. 3. Congestive heart failure. 4. Defibrillator pacemaker placement by Dr. Eddy Dos Santos in 2016. 5. Diverticulitis. 6. Duodenal ulcers at age of 19. 7. Gastroesophageal reflux. 8. Myocardial infarction in 1993 with coronary artery bypass procedure performed in 01/[address] Hair. 9. Hemorrhoids. 10. Stroke 05/15/2018 causing transient expressive aphasia. 11. Urinary retention with incontinence. 12. Prostate cancer dating back to 2002 with evidence of progressive disease. ALLERGIES: QUESTRAN. MEDICATIONS PRIOR TO ADMISSION: 1. Xanax 0.25 mg p.o. p.r.n. 2. Aspirin 81 mg a day. 3. Bisoprolol 5 mg b.i.d. 4. Calcium. 5. Hydrocodone/acetaminophen 5/325 every 6 hours p.r.n. 6. Lasix 40 a day. 7. Magnesium sulfate. 8. Micro-K. 9. Omeprazole 20 a day. 10. Simethicone 80 mg p.r.n. 11. Spironolactone 25 mg a day. 12. Multiple vitamins. 13. Xarelto 20 mg a day due to his previous history of stroke and atrial fibrillation. FAMILY HISTORY: Mother at age 82 of a myocardial infarction and had acute renal failure. Father of congestive heart failure at age 77 and had bladder cancer. REVIEW OF SYSTEMS: Notable for progressive pain in the back, ribs, and pelvis. The patient has had easy bruising. He has difficulty hearing. He feels ill, nauseated, and has diffuse bone pain. He has pain on the left leg. He is weak overall. At the time of the visit in the office, he had difficulty walking; although, since hospitalization and administration of steroids, he is infinitely better. PHYSICAL EXAMINATION: VITAL SIGNS: Respiratory rate 18, pulse 74 and regular, afebrile. HEENT: Head is normocephalic. Sclerae and conjunctivae normal. Oropharynx unremarkable. The patient has a pacemaker defibrillator. HEART: Regular rhythm. LUNGS: Clear. ABDOMEN: Soft. No hepatosplenomegaly. EXTREMITIES: Trace edema. MUSCULOSKELETAL: Mild tenderness over the spine. NEUROLOGIC: Strength infinitely better than last evening. He can lift both legs off the bed without any problems. LABORATORY TESTS: On 09/30/2018, hemoglobin 12.8, white count 9500, and platelets of 282,000. CMP is notable for SGOT of 109, alkaline phosphatase 548. TSH is 1.5, PSA and serum testosterone level are pending. CT of the thoracic and lumbar spine shows no evidence of spinal compression, does show metastatic disease. ASSESSMENT AND PLAN: The patient is an 83-year-old male who has rapidly progressive metastatic prostate cancer to bone. He has a doubling time of approximately 4 weeks. When I saw him last night, I was concerned that he had spinal cord compression and for this reason arranged admission. He is clearly doing better, which I attribute to the steroids. He does not have evidence of spinal cord compression. RECOMMENDATIONS: 1. Will continue Decadron- 4 mg p.o. t.i.d. as it is having an enormously positive impact on his pain. 2. Continue pain medications such as Percocet. 3. He will begin Lupron. He will receive a single injection today, which will last for a month. 4. Lupron will cause an immediate increase in the testosterone, then it falls rapidly. To avoid the flare reaction, he will begin Casodex 150 mg p.o. daily, which will be given briefly in the outpatient setting as well. 5. Physical therapy has been consulted and he may need help at home. 6. I anticipate that discharge will be possible in the next several days. Due to the fact that he has extensive rapidly progressive disease involving the bones, I will probably add abiraterone to his current regimen as this gives him a better chance of a durable response. Will also at some point treat with bisphosphonates 7. In the meantime, would continue the same cardiac medicines he takes as an outpatient. I am very grateful for the help from the physicians who are involved in his care. would like case management to evaluate as his may need help at home. 8. check serum PSA and testosterone level. MD DIANNA Maza/elin , 12:12 PM , 12:33 PM DYLON
--- NOTE | 2018-10-01 16:17 | ECG ---
Date Performed: 09/30/2018 Time Performed: 21:04:29 PTAGE: 83 years EKG: ELECTRONIC VENTRICULAR PACEMAKER Compared to previous tracing, there is now evidence of maryjane ctronic ventricular pacing ABNORMAL RHYTHM ECG PREVIOUS TRACING : 11/07/2010 00.30 DOCTOR: Namrata Falcon Interpretating Date/Time 10/01/2018 16:16:39
[2018-10-01] MEDS: ALPRAZolam 0.25 MG Tablet PO PRN (22:15)
[2018-10-02 07:58] LABS: Baso % (Auto) 0.5 % (0.0-2.0); Hematocrit 31.7 % (39.0-51.0); Hemoglobin 10.6 gm/dL (13.0-17.0); Lymph # (Auto) 0.4 th/mm3 (1.0-4.8); Mean Corpuscular HGB Conc 33.4 % (32.0-36.0); Mean Corpuscular Hemoglobin 29.8 pg (27.0-34.0); Mean Corpuscular Volume 89.2 fL (80.0-100.0); Mean Platelet Volume 9.3 fL (7.0-11.0); Mono # (Auto) 0.4 th/mm3 (0.0-0.9); Neut # (Auto) 7.8 th/mm3 (1.8-7.7); Neut % (Auto) 89.5 % (16.0-70.0); Platelet Count 235 th/mm3 (150-450); Red Blood Count 3.56 mil/mm3 (4.50-5.90); Red Cell Distribution Width 14.2 % (11.6-17.2); White Blood Count 8.7 th/mm3 (4.0-11.0)
[2018-10-02] MEDS: Rivaroxaban 20 MG Tablet PO SCH (08:19)
[2018-10-02] MEDS: Furosemide 40 MG Tablet PO SCH (08:19)
[2018-10-02] MEDS: Senna/Docusate Sodium 8.6/50 MG Tablet PO SCH ×2 (08:19→21:22)
[2018-10-02 08:24] LABS: Anion Gap 6 meq/L (5-15); Blood Urea Nitrogen 12 mg/dL (7-18); Calcium 9.1 mg/dL (8.5-10.1); Carbon Dioxide 24.2 meq/L (21.0-32.0); Chloride 105 meq/L (98-107); Glomerular Filtration Rate Greater Than 89 mL/min (>89); Glucose,Random 130 mg/dL (74-106); Potassium 3.9 meq/L (3.5-5.1); Sodium 135 meq/L (136-145)
[2018-10-02] MEDS: Sod Chloride 0.9% Inj 1,000 ML IV.CONT SCH ×2 (09:18→14:19)
--- NOTE | 2018-10-02 10:36 | P.PNONC ---
Subjective Interval history: Patient sitting in chair, his is at the bedside. He is tearful during our conversation and is very grateful for the care he has received here. He reports feeling stronger and states that he was able to ambulate with his walker to the chair. We have discussed discharge planning for tomorrow. He elects to not have home health care, stating that they are very busy and he does not want to be held down by appointments. He attends cardiac rehab daily, and plans to continue this. Objective Vital Signs/Intake & Output: Vital Signs 10/01/18 12:00 10/01/18 16:00 10/01/18 16:53 Temperature 98.0 F 98.4 F Pulse Rate 80 80 80 Respiratory Rate 14 17 Blood Pressure 112/59 L 118/60 Pulse Oximetry 97 96 10/01/18 20:00 10/02/18 00:00 10/02/18 04:00 Temperature 97.5 F L 97.6 F 97 F L Pulse Rate 80 79 85 Respiratory Rate 16 16 16 Blood Pressure 112/63 116/56 L 118/62 Pulse Oximetry 96 95 97 10/02/18 08:00 10/02/18 09:52 Temperature 97.6 F Pulse Rate 80 Respiratory Rate 17 Blood Pressure 125/72 Pulse Oximetry 97 96 Intake & Output 10/01/18 10/02/18 10/02/18 18:59 06:59 18:59 Intake Total 1000 / 1000 1000 / 1000 1000 / 1000 Output Total 120 / 120 50 / 50 100 / 100 Balance 880 / 880 950 / 950 900 / 900 Weight 75.5 kg Intake: IV 1000 / 1000 1000 / 1000 1000 / 1000 NS Inj 1,000 ML @ 125 mls/hr IV 1000 / 1000 1000 / 1000 1000 / 1000 .CONT .Q8H [facility] Rx#:[id number] Output: Urine 120 / 120 50 / 50 100 / 100 Other: # Voids 1 # Incontinent Voids 1 # Urine Diapers 1 1 Date of Last Bowel Movement 09/28/18 09/28/18 Result Diagrams: 10/02/18 07:17 10/02/18 07:17 Laboratory Results: Laboratory Results - last 24 hr 10/02/18 10/02/18 07:17 07:17 WBC 8.7 RBC 3.56 L Hgb 10.6 L D Hct 31.7 L MCV 89.2 MCH 29.8 MCHC 33.4 RDW 14.2 Plt Count 235 MPV 9.3 Neut % (Auto) 89.5 H Lymph % (Auto) 5.0 L [place] % (Auto) 5.0 Eos % (Auto) 0.0 Baso % (Auto) 0.5 Neut # (Auto) 7.8 H Lymph # (Auto) 0.4 L [place] # (Auto) 0.4 Eos # (Auto) 0.0 Baso # (Auto) 0.0 WBC Differential . Differential Comment Auto diff final Sodium 135 L D Potassium 3.9 Chloride 105 D Carbon Dioxide 24.2 Anion Gap 6 BUN 12 Creatinine 0.67 Estimated GFR Greater than 89 Random Glucose 130 H Calcium 9.1 D Medications: Active Medications Generic Name Dose Route Start Last Admin Trade Name Freq PRN Reason Stop Dose Admin Al Hydroxide/Mg Hydroxide 30 ml 10/01/18 00:05 10/01/18 14:38 Milk Of Magnesia Liq PO 30 ml Q12H PRN Administration Mild Constipation Alprazolam 0.25 mg 10/01/18 00:04 10/01/18 22:15 Xanax PO 0.25 mg BID PRN Administration Anxiety Aspirin 81 mg 10/01/18 09:00 10/02/18 08:18 Ecotrin PO 81 mg DAILY [facility] Administration Bicalutamide 150 mg 10/01/18 12:00 10/02/18 08:19 Casodex PO 150 mg DAILY [facility] Administration Bisoprolol Fumarate 5 mg 10/01/18 12:00 10/02/18 08:19 Zebeta PO 5 mg DAILY [facility] Administration Dexamethasone 4 mg 10/01/18 13:00 10/02/18 08:26 Decadron PO 4 mg TID [facility] Administration Furosemide 40 mg 10/01/18 09:00 10/02/18 08:19 Lasix PO 40 mg DAILY [facility] Administration Sodium Chloride 1,000 mls @ 125 mls/hr 09/30/18 20:45 10/02/18 09:18 Ns Inj IV.CONT 125 mls/hr .Q8H [facility] Administration Oxycodone/Acetaminophen 1 tab 10/01/18 00:03 10/01/18 05:21 Percocet 7.5/325 Mg PO 1 tab Q4H PRN Administration pain 6-10 Pantoprazole Sodium 40 mg 10/01/18 09:00 10/02/18 08:18 Protonix PO 40 mg DAILY [facility] Administration Rivaroxaban 20 mg 10/01/18 09:00 10/02/18 08:19 Xarelto PO 20 mg DAILY [facility] Administration Senna/Docusate Sodium 1 tab 10/01/18 09:00 10/02/18 08:19 Juhi-Colace PO 1 tab BID [facility] Administration Sodium Chloride 2 ml 10/01/18 09:00 10/01/18 20:14 Ns Flush IV.FLUSH Not Given BID [facility] Objective Remarks: GENERAL: Well-nourished, well-developed elderly male patient, in no acute distress. SKIN: Warm and dry. HEAD: Normocephalic. EYES: No scleral icterus. No injection or drainage. NECK: Supple, trachea midline. CARDIOVASCULAR: Regular rate and rhythm without murmurs. RESPIRATORY: Breath sounds clear, equal bilaterally. No accessory muscle use. GASTROINTESTINAL: Abdomen soft, non-tender, nondistended. EXTREMITIES: No cyanosis, or edema. MUSCULOSKELETAL: Adequate muscle tone. NEUROLOGICAL: No obvious focal deficit. Awake, alert, and oriented x3. PSYCHIATRIC: Tearful; insight and judgment normal. Assessment/Plan - Plan Mr. 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 Currently admitted to the hospital with concerns regarding possible spinal cord compression. Recommendations: 1. Lower extremity weakness has improved, there is no other signs of spinal cord compression at this time. Unable to do MRI due to cardiac defibrillator. Patient was able to ambulate this a.m. with his walker. 2. Prostate cancer with metastases to the bone. Continue Decadron 4 mg 3 times daily. Continue Casodex 150 mg daily. Patient received Lupron 7.5 mg IM x1 yesterday. 3. Patient is improving, tentatively plan for discharge home tomorrow. Discharge medications to include Decadron 4 mg twice daily, Casodex 50 mg daily times 10 days. We will start insurance approval process for outpatient treatment with abiraterone. The patient declines home health service, as he is active and will continue cardiac rehab. - Attending Statement The exam, history, and the medical decision-making described in the above note were completed with the assistance of the mid-level provider. I reviewed and agree with the findings presented. I attest that I had a [id number] encounter with the patient on the same day, and personally performed and documented my assessment and findings in the medical record. The patient and are thrilled. He has minimal pain. He is able to ambulate independently. For the first time he has a sense of hope. He asked to not have laboratory studies done tomorrow as the venous sticks are painful for him. At the present time I have adequate laboratory studies to move forward and I canceled his a.m. lab studies. He can be discharged tomorrow am. I would like to see him in approximately a week. We are in the process of trying to obtain abiraterone which can be very effective when added to Lupron in terms of progression free survival and survival. I reviewed the data with him. He will only need the Casodex for approximately 10 days to prevent a flare as the testosterone initially increases due to the Lupron and then will rapidly fall to a castrate level. In a month he will receive another injection which will last for 3 months
--- NOTE | 2018-10-02 15:47 | P.PNIM ---
Subjective Interval history: Patient says he is feeling much better than yesterday. Denies any chest pain shortness of breath. Physical Exam Vital signs: Vital Signs 10/01/18 16:00 10/01/18 16:53 10/01/18 20:00 Temperature 98.4 F 97.5 F L Pulse Rate 80 80 80 Respiratory Rate 17 16 Blood Pressure 118/60 112/63 Pulse Oximetry 96 96 10/02/18 00:00 10/02/18 04:00 10/02/18 08:00 Temperature 97.6 F 97 F L 97.6 F Pulse Rate 79 85 80 Respiratory Rate 16 16 17 Blood Pressure 116/56 L 118/62 125/72 Pulse Oximetry 95 97 97 10/02/18 09:52 10/02/18 12:00 10/02/18 14:00 Temperature 98.3 F Pulse Rate 86 80 Respiratory Rate 17 Blood Pressure 123/73 Pulse Oximetry 96 98 10/02/18 15:07 Temperature 97.8 F Pulse Rate 80 Respiratory Rate 18 Blood Pressure 144/71 H Pulse Oximetry 100 Intake & Output 10/01/18 10/02/18 10/02/18 18:59 06:59 18:59 Intake Total 1000 / 1000 1000 / 1000 1400 / 1400 Output Total 120 / 120 50 / 50 100 / 100 Balance 880 / 880 950 / 950 1300 / 1300 Weight 75.5 kg Intake: IV 1000 / 1000 1000 / 1000 1400 / 1400 NS Inj 1,000 ML @ 125 mls/hr IV 1000 / 1000 1000 / 1000 1400 / 1400 .CONT .Q8H [facility] Rx#:[id number] Output: Urine 120 / 120 50 / 50 100 / 100 Other: # Voids 1 # Incontinent Voids 1 # Urine Diapers 1 1 Date of Last Bowel Movement 09/28/18 09/28/18 Narrative: GENERAL: Patient sitting in bed. Appears comfortable.Patient sitting up in chair at bedside. Appears comfortable. SKIN: Warm and dry. HEAD: Normocephalic. EYES: No scleral icterus. No injection or drainage. NECK: Supple, trachea midline. No JVD. CARDIOVASCULAR: Regular rate and rhythm without murmurs, gallops, or rubs. RESPIRATORY: Breath sounds equal bilaterally. No accessory muscle use. GASTROINTESTINAL: Abdomen soft, non-tender, nondistended. MUSCULOSKELETAL: No cyanosis, or edema. BACK: Nontender without obvious deformity. No CVA tenderness. Results - Labs CBC & Chem 7: 10/02/18 07:17 10/02/18 07:17 Laboratory Results - last 24 hr 10/02/18 10/02/18 07:17 07:17 WBC 8.7 RBC 3.56 L Hgb 10.6 L D Hct 31.7 L MCV 89.2 MCH 29.8 MCHC 33.4 RDW 14.2 Plt Count 235 MPV 9.3 Neut % (Auto) 89.5 H Lymph % (Auto) 5.0 L [place] % (Auto) 5.0 Eos % (Auto) 0.0 Baso % (Auto) 0.5 Neut # (Auto) 7.8 H Lymph # (Auto) 0.4 L [place] # (Auto) 0.4 Eos # (Auto) 0.0 Baso # (Auto) 0.0 WBC Differential . Differential Comment Auto diff final Sodium 135 L D Potassium 3.9 Chloride 105 D Carbon Dioxide 24.2 Anion Gap 6 BUN 12 Creatinine 0.67 Estimated GFR Greater than 89 Random Glucose 130 H Calcium 9.1 D Assessment and Plan - Plan //Left lower extremity weakness/lower back pain Concern for metastatic disease to the spine causing cord compression CT of the thoracic spine concerning for T10 acute fracture with multiple areas of metastatic disease to the bone CT of the lumbar spine significant for fracture of L4 with slight retropulsion and canal stenosis as well as remote L1 compression deformity and metastatic disease Decadron Neurosurgery consulted, appreciate assistance Percocet for pain = Much improved on Decadron. Continue current management. Plan for discharge home tomorrow morning if continues doing okay. // Metastatic prostate cancer Patient's oncologist, Dr. Clemente consulted, appreciate assistance = Management as per oncology. Appreciate assistance. //Congestive heart failure Continue home Lasix, Spironolactone, Bystolic Caution with IV fluids = DC IV fluids. Continue to monitor. //Coronary artery disease/atrial fibrillation Continue home medications including anticoagulation with Xarelto //Anemia Likely dilutional. Hemoglobin to 10.6 from 12.6 on admission. Will monitor tomorrow. 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 Discharge Planning: Per discussion with case management, patient has refused home health. Plan for discharge home tomorrow when cleared by oncology. Appreciate oncology assistance. Follow-up with oncology as outpatient.
[2018-10-02] MEDS ORDERED: Spironolactone 25 MG Tablet PO SCH (16:00)
[2018-10-02] MEDS: ALPRAZolam 0.25 MG Tablet PO PRN (21:22)
[2018-10-03 08:24] VITALS: BP 130/69; PULSE 85; RESP 20; TEMP 97.8
[2018-10-03 08:26] VITALS: O2SAT 100
--- NOTE | 2018-10-03 08:48 | P.PNONC ---
Subjective Interval history: Patient stiffer this morning and little more painful. No bowel movement. Appetite is good and nausea has resolved. Objective Vital Signs/Intake & Output: Vital Signs 10/02/18 09:52 10/02/18 12:00 10/02/18 14:00 Temperature 98.3 F Pulse Rate 86 80 Respiratory Rate 17 Blood Pressure 123/73 Pulse Oximetry 96 98 10/02/18 15:07 10/02/18 16:00 10/02/18 20:00 Temperature 97.8 F 98 F Pulse Rate 80 80 85 Respiratory Rate 18 15 Blood Pressure 144/71 H 116/72 Pulse Oximetry 100 95 10/03/18 00:00 10/03/18 04:00 10/03/18 07:41 Temperature 98 F 98 F Pulse Rate 80 80 79 Respiratory Rate 16 15 Blood Pressure 112/62 108/60 Pulse Oximetry 97 97 10/03/18 08:23 10/03/18 08:26 Temperature 97.8 F Pulse Rate 85 Respiratory Rate 20 Blood Pressure 130/69 Pulse Oximetry 97 100 Intake & Output 10/02/18 10/03/18 10/03/18 18:59 06:59 18:59 Intake Total 1400 / 1400 Output Total 100 / 100 400 / 400 Balance 1300 / 1300 -400 / -400 Intake: IV 1400 / 1400 NS Inj 1,000 ML @ 125 mls/hr IV 1400 / 1400 .CONT .Q8H [facility] Rx#:[id number] Output: Urine 100 / 100 400 / 400 Other: # Voids 10 # Urine Diapers 1 Date of Last Bowel Movement 09/28/18 Result Diagrams: 10/02/18 07:17 10/02/18 07:17 Medications: Active Medications Generic Name Dose Route Start Last Admin Trade Name Freq PRN Reason Stop Dose Admin Al Hydroxide/Mg Hydroxide 30 ml 10/01/18 00:05 10/01/18 14:38 Milk Of Magnesia Liq PO 30 ml Q12H PRN Administration Mild Constipation Alprazolam 0.25 mg 10/01/18 00:04 10/02/18 21:22 Xanax PO 0.25 mg BID PRN Administration Anxiety Aspirin 81 mg 10/01/18 09:00 10/02/18 08:18 Ecotrin PO 81 mg DAILY [facility] Administration Bicalutamide 150 mg 10/01/18 12:00 10/02/18 08:19 Casodex PO 150 mg DAILY [facility] Administration Bisoprolol Fumarate 5 mg 10/01/18 12:00 10/02/18 08:19 Zebeta PO 5 mg DAILY [facility] Administration Dexamethasone 4 mg 10/01/18 13:00 10/02/18 17:48 Decadron PO 4 mg TID [facility] Administration Furosemide 40 mg 10/01/18 09:00 10/02/18 08:19 Lasix PO 40 mg DAILY [facility] Administration Lactulose 30 ml 10/01/18 00:05 10/02/18 12:42 Lactulose Liq PO 30 ml DAILY PRN Administration SEVERE CONSITIPATION Oxycodone/Acetaminophen 1 tab 10/01/18 00:03 10/01/18 05:21 Percocet 7.5/325 Mg PO 1 tab Q4H PRN Administration pain 6-10 Pantoprazole Sodium 40 mg 10/01/18 09:00 10/02/18 08:18 Protonix PO 40 mg DAILY [facility] Administration Rivaroxaban 20 mg 10/01/18 09:00 10/02/18 08:19 Xarelto PO 20 mg DAILY [facility] Administration Senna/Docusate Sodium 1 tab 10/01/18 09:00 10/02/18 21:22 Juhi-Colace PO 1 tab BID [facility] Administration Sodium Chloride 2 ml 10/01/18 09:00 10/02/18 21:23 Ns Flush IV.FLUSH 2 ml BID [facility] Administration Spironolactone 25 mg 10/02/18 16:00 10/02/18 15:06 Aldactone PO 25 mg DAILY@1600 [facility] Administration Objective Remarks: GENERAL: Ambulatory but moves slowly and stiff. SKIN: Warm and dry. HEAD: Normocephalic. EYES: No scleral icterus. No injection or drainage. NECK: Supple, trachea midline. No JVD or lymphadenopathy. LYMPHATIC: No adenopathy. CARDIOVASCULAR: Regular rate and rhythm without murmurs. RESPIRATORY: Breath sounds equal bilaterally. No accessory muscle use. GASTROINTESTINAL: Abdomen soft, non-tender, nondistended. EXTREMITIES: No cyanosis, or edema. MUSCULOSKELETAL: Adequate muscle tone. NEUROLOGICAL: No obvious focal deficit. Awake, alert, and oriented x3. PSYCHIATRIC: Appropriate mood and affect; insight and judgment normal. Assessment/Plan - Plan Mr. 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 Currently admitted to the hospital with concerns regarding possible spinal cord compression. Recommendations: 1: At this point there is nothing further to be gained by hospitalization. He is ambulatory and capable of self-care. He can be discharged home. I would like him to go home with the following prescriptions Decadron 4 mg p.o. twice daily Casodex 50 mg p.o. daily for 10 days 10 tablets Percocet 5/325 30 tablets, 1-2 p.o. every 4 hours as needed pain. Patient will continue his cardiac medicines at home. I will arrange to see him in approximately a week's time. Thank you.
[2018-10-03] MEDS ORDERED: Magnesium Citrate Liq 300 ML Bottle PO ONE (09:00)
[2018-10-03] MEDS ORDERED: Sod Phosphate/Sod Biphosphate (Adult) Enema 133 ML Bottle RECTAL ONE (09:00)
[2018-10-03] MEDS: Rivaroxaban 20 MG Tablet PO SCH (09:33)
[2018-10-03] MEDS: Furosemide 40 MG Tablet PO SCH (09:34)
[2018-10-03] MEDS: Senna/Docusate Sodium 8.6/50 MG Tablet PO SCH (09:34)
--- NOTE | 2018-10-03 12:59 | P.DS ---
Date of admission: 09/30/18 23:28 Primary care physician: John Vargas MD Brief History from admission: 82-year-old male with a past medical history significant for metastatic prostate cancer, coronary artery disease status post CABG with pacemaker/ defibrillator, congestive heart failure, history of CVA and atrial fibrillation anticoagulated on Xarelto presents to the emergency department at the recommendation of his oncologist, Dr. Clemente, for the evaluation of left lower extremity weakness and lower back pain. The patient reports he has had lower back pain and left lower extremity weakness that has been progressively worsening since July. He reports that the pain is intractable and markedly worse with any movement. Patient currently complains of a mild aching headache with persistent nausea and constipation. He denies any chest pain or shortness of breath. No fevers/chills. DS: Medications - Discharge Medications Prescriptions: alprazolam [Xanax] 0.25 mg PO BID PRN #6 tab PRN Reason: Anxiety bicalutamide 150 mg PO DAILY #10 tab dexamethasone 4 mg PO TID 14 Days #42 tab hydrocodone-acetaminophen 1 tab PO Q4H PRN #24 tab PRN Reason: Acute Pain Exception sennosides-docusate sodium [Senna with Docusate Sodium] 1 tab PO BID #60 tab DS: Summary Hospital Course: Oncology was consulted. Spinal imaging shows metastatic disease as below. Patient's symptoms markedly improved on Decadron, Casodex pain medication. Patient was cleared for discharge by oncology. For problem-based summary from most recent progress note, please see below. //Left lower extremity weakness/lower back pain Concern for metastatic disease to the spine causing cord compression CT of the thoracic spine concerning for T10 acute fracture with multiple areas of metastatic disease to the bone CT of the lumbar spine significant for fracture of L4 with slight retropulsion and canal stenosis as well as remote L1 compression deformity and metastatic disease Decadron Neurosurgery consulted, appreciate assistance Percocet for pain = Much improved on Decadron. Discussed with oncology again today. Discharge home and follow-up with oncology as outpatient. // Metastatic prostate cancer Patient's oncologist, Dr. Clemente consulted, appreciate assistance = Management as per oncology. Appreciate assistance. //Congestive heart failure Continue home Lasix, Spironolactone, Bystolic Caution with IV fluids = off IV fluids. Continue to monitor. //Coronary artery disease/atrial fibrillation Continue home medications including anticoagulation with Xarelto //Anemia Likely dilutional. Hemoglobin to 10.6 from 12.6 on admission. = Likely dilutional as all cell lines are down. Follow-up with oncology as outpatient. FEN Heart healthy diet Electrolytes: Monitor and replete as needed Xarelto Discharge Planning: Discharge home. Patient has refused home health. Follow-up with oncology as outpatient - Time Spent with Patient Total time spent providing and/or coordinating discharge services: Greater than 30 minutes - Quality: VTE Deep Vein Thrombosis/Pulmonary Embolism Present on Admission: No Exam Vital signs: Vital Signs 10/02/18 14:00 10/02/18 15:07 10/02/18 16:00 Temperature 97.8 F Pulse Rate 80 80 80 Respiratory Rate 18 Blood Pressure 144/71 H Pulse Oximetry 100 10/02/18 20:00 10/03/18 00:00 10/03/18 04:00 Temperature 98 F 98 F 98 F Pulse Rate 85 80 80 Respiratory Rate 15 16 15 Blood Pressure 116/72 112/62 108/60 Pulse Oximetry 95 97 97 10/03/18 07:41 10/03/18 08:23 10/03/18 08:26 Temperature 97.8 F Pulse Rate 79 85 Respiratory Rate 20 Blood Pressure 130/69 Pulse Oximetry 97 100 Intake & Output 10/02/18 10/03/18 10/03/18 18:59 06:59 18:59 Intake Total 1400 / 1400 Output Total 100 / 100 400 / 400 Balance 1300 / 1300 -400 / -400 Intake: IV 1400 / 1400 NS Inj 1,000 ML @ 125 mls/hr IV 1400 / 1400 .CONT .Q8H [facility] Rx#:[id number] Output: Urine 100 / 100 400 / 400 Other: # Voids 10 # Urine Diapers 1 Date of Last Bowel Movement 09/28/18 10/03/18 Narrative: GENERAL: Patient sitting in bed. Appears comfortable.Patient sitting up in chair at bedside. Appears comfortable. No change on exam. SKIN: Warm and dry. HEAD: Normocephalic. EYES: No scleral icterus. No injection or drainage. NECK: Supple, trachea midline. No JVD. CARDIOVASCULAR: Regular rate and rhythm without murmurs, gallops, or rubs. RESPIRATORY: Breath sounds equal bilaterally. No accessory muscle use. GASTROINTESTINAL: Abdomen soft, non-tender, nondistended. MUSCULOSKELETAL: No cyanosis, or edema. BACK: Nontender without obvious deformity. No CVA tenderness. Results Procedures completed during hospitalization: no invasive procedures. - Impressions ITS Impressions Cervical Spine CT 09/30/18 20:41 CONCLUSION: 1. Degenerative changes are noted as above without evidence for acute fracture or listhesis. Chest X-Ray 09/30/18 20:41 CONCLUSION: 1. Mildly prominent cardiac silhouette unchanged 2016. 2. No acute cardiopulmonary disease identified. Head CT 09/30/18 20:41 CONCLUSION: 1. Atrophy and white matter disease. . Lumbar Spine CT 09/30/18 20:46 There is atherosclerotic calcification of the aorta and iliac vessels noted. There is severe disc space narrowing at L4-5 and L5-S1 with vacuum disc phenomenon, endplate sclerosis and osteophytosis. There is concavity at the superior endplate of L4 felt to represent an acute superior endplate compression fracture with a thin band of sclerosis along the anterior one half consistent with a chronic component. There is mild loss of vertebral body height. Prominent Schmorl node inferior endplate of L2 identified. There is also a Schmorl node with mild wedging of L1 which is nonacute in appearance. Vacuum disc phenomenon and moderate disc space narrowing at L1-2 noted. Patchy sclerosis is seen at T11 and T12 as well as the left iliac bone suspicious for metastatic disease. At L3-4 there is moderate to severe canal stenosis secondary to slight retropulsion of the posterior superior aspect of L4 and a diffuse disc bulge. CONCLUSION: 1. Degenerative changes as well as an acute on chronic superior endplate fracture at L4 with slight retropulsion and canal stenosis. 2. Remote L1 compression deformity. 3. Patchy sclerotic foci are noted as above and characteristic of metastatic disease. Thoracic Spine CT 09/30/18 20:46 Examination demonstrates slight nonacute wedging of T6, scattered sclerotic lesions within the spine characteristic of the patient's known metastatic disease to bone. There is a linear lucency seen along the posterior one third superior endplate of T10 with slight superior endplate concavity characteristic of an acute fracture. There is a Schmorl node at the superior endplate of T11 as well as the inferior endplate of T11. There is concavity along the superior endplate of L1 which is nonacute in appearance. There is no evidence for spinal stenosis. CONCLUSION: 1. Degenerative changes as well as a T10 superior endplate fracture with slight loss of vertebral body height at the superior endplate. 2. Metastatic disease to bone. Discharge Plan - Discharge Disposition Patient Disposition: 01 Discharge Home - Discharge Condition Condition: Good - Discharge Order Discharge Orders: Discharge Order (Routine); Ordered 10/03/18 Ordered By: Ron Richardson - Discharge Details Anticipated Discharge Date: 10/03/18 - Physicians Team Primary Care Provider: John Vargas Attending Provider: Ron Richardson Other Providers: Ra Dietrich MD ; Kit Clemente MD
[2018-10-03 17:15] LABS: Free PSA/PSA Ratio 0 ratio
== END 2018-10-03 12:20 | disposition home or self-care (01) | DRG 948 ==
LOC: NEPE 19:25 → INTOOBSV 23:28 → NEDA 23:28 → OBSVTOIN 10-01 00:05 → HCIN 10-01 04:13
PROVIDERS: ADMIT Internal Medicine; ATTEND Internal Medicine
CPT/HCPCS: 70450; 71010; 71045; 72125; 72128; 72131; 80048; 80053; 81001; 82550; 82552; 83735; 84153; 84154; 84402; 84403; 84443; 85025; 85610; 85730; 93005; 97162; 99212; 99215; 99285; G0463; J1950; J7030; J8540; J9217